=== PATIENT | male | born 1995 | race African-American/Black ===

== ENCOUNTER 2024-03-26 22:09 | Emergency (ER) | payer MEDICAID, OTHER ==
[~2024-03-26] VITALS: Ht 172.7 cm; Wt 64.5 kg
[2024-03-26 22:19] VITALS: O2SAT 99
[2024-03-26 22:47] LABS: CLARITY URINE CLOUDY (CLEAR); COLOR URINE YELLOW (YELLOW); GLUCOSE URINE NEGATIVE (NEGATIVE); KETONES URINE NEGATIVE (NEGATIVE); LEUKOCYTE ESTERASE URINE 2+ (NEGATIVE); NITRITE URINE NEGATIVE (NEGATIVE); OCCULT BLOOD URINE NEGATIVE (NEGATIVE); PROTEIN URINE NEGATIVE (NEGATIVE); SPECIFIC GRAVITY URINE 1.026 (1.005-1.030)
[2024-03-26 23:09] LABS: BACTERIA URINE 2+; SQUAMOUS EPITHELIAL CELL URINE FEW /lpf (RARE/1+)
[2024-03-26 23:10] LABS: RBC URINE 0-2 /hpf (0-2); WBC URINE 25-50 /hpf (0-2)
[2024-03-26] MEDS ORDERED: DOXY100T2 MT (23:39)
[2024-03-26] MEDS: CEFTRIAXONE SODIUM 500MG VIAL IM ONE (23:56)
[2024-03-27 00:31] VITALS: BP 110/66; PULSE 67; RESP 16; TEMP 98.4
[2024-03-28 17:10] LABS: CHLAMYDIA TRACHOMATIS NAA Negative (Negative); NEISSERIA GONORRHOEAE NAA Positive (Negative)
== END 2024-03-27 00:33 | disposition home or self-care (01) ==
LOC: ER 22:09
DX: A64 Unspecified sexually transmitted disease (principal); F12.10 Cannabis abuse, uncomplicated; Z98.890 Other specified postprocedural states
CPT/HCPCS: 99283; 87491; 87591; 81003; 87086; 96372; J0696